=== PATIENT | female | born 1985 | race Two or more races ===

== ENCOUNTER 2017-03-22 22:05 | Emergency (ER) | payer OTHER, MEDICARE ==
[2017-03-22] MEDS ORDERED: METFORMIN HCL1000 M2 PO (22:27)
[2017-03-22] MEDS ORDERED: LISINOPRIL (22:28)
[2017-03-22 22:53] LABS: BASO % 0.1 % (0-2); EOS % 0.3 % (0-7); HCT-HEMATOCRIT 39.4 % (34.0-49.0); IMMATURE GRANULOCYTES ABSOLUTE 0.04 tho/cmm (0-0.03); IMMATURE GRANULOCYTES PERCENT 0.3 % (0-0.3); LYMPH ABSOLUTE COUNT 4.3 tho/cmm (0.8-4.5); MCH (MEAN CORPUSCULAR HGB) 29.3 pg (28.0-32.0); MCV (MEAN CELL VOLUME) 88.9 fl (82.0-96.0); MEAN PLATELET VOLUME 10.2 cmc (9.4-12.4); MONO % 5.3 % (0-12); MONOCYTE ABSOLUTE COUNT 0.8 tho/cmm (0.0-1.2); NEUTROPHIL ABSOLUTE COUNT 9.2 tho/cmm (1.6-8.0); NEUTROPHIL-AUTOMATED 9.2 tho/cmm (1.6-8.0); PLATELET COUNT 213 tho/cmm (150-450); RED BLOOD COUNT 4.43 mil/cmm (4.00-5.20); RED CELL DISTRIBUTION WIDTH 13.7 % (12.4-16.4); WHITE BLOOD COUNT 14.4 tho/cmm (4.0-10.0)
[2017-03-22 23:09] LABS: ALB/GLOB RATIO 0.8 (0.8-2.0); ALBUMIN 3.1 g/dl (3.5-5.0); ALKALINE PHOSPHATASE 65 U/L (33-138); ALT/SGPT 24 U/L (12-78); ANION GAP 11 mmol/L (0-20); AST/SGOT 12 U/L (10-40); BILIRUBIN,TOTAL 0.5 mg/dl (0-1.5); BLOOD UREA NITROGEN 7 mg/dl (6-24); CALCIUM 8.1 mg/dl (8.5-10.5); CARBON DIOXIDE-VENOUS 27 mmol/L (22-32); CHLORIDE 106 mmol/l (96-110); CREATININE 0.62 mg/dl (0.50-1.10); GLUCOSE 148 mg/dL (70-110); LIPASE 64 U/L (73-393); POTASSIUM 3.4 mmol/L (3.7-5.1); SODIUM 141 mmol/L (135-145); eGFR VALUE FOR BLACK >90 mL/Min
[2017-03-22 23:11] LABS: URINE APPEARANCE CLEAR; URINE BILIRUBIN NEGATIVE (NEG); URINE BLOOD NEGATIVE (NEG); URINE COLOR YELLOW; URINE GLUCOSE (UA) POSITIVE (NEG); URINE KETONE NEGATIVE (NEG); URINE LEUKOCYTE ESTERASE NEGATIVE (NEG); URINE NITRITE NEGATIVE (NEG); URINE PROTEIN NEGATIVE (NEG)
[2017-03-23] MEDS ORDERED: PERCOCET 5-3251 EACH PO (00:52)
== END 2017-03-23 00:35 ==
LOC: EDMED 22:05
PROVIDERS: Emergency Medicine
DX: N83.292 Other ovarian cyst, left side (principal); E11.65 Type 2 diabetes mellitus with hyperglycemia; I10 Essential (primary) hypertension
CPT/HCPCS: J1885; J2405; J7030